=== PATIENT | male | born 1950 | race Caucasian/White ===

== ENCOUNTER → 2016-11-26 | Outpatient (REF) | LOC: ZLAB.WCH 18:42 | DX: Z01.89 Encounter for other specified special examinations (principal) ==

== ENCOUNTER 2019-05-25 10:59 | Emergency (ER) | payer MEDICARE, OTHER ==
[~2019-05-25] VITALS: Ht 177.8 cm; Wt 99.5 kg
[2019-05-25 11:25] VITALS: TEMP 99.9
[2019-05-25] MEDS ORDERED: CYMBALTA 60MG60 MG PO (11:46)
[2019-05-25] MEDS ORDERED: PRINIVIL10 MG PO (11:46)
[2019-05-25] MEDS ORDERED: AMBIEN 10MG10 MG PO (11:47)
[2019-05-25] MEDS ORDERED: NORCO 325 MG-51 TAB PO (15:23)
[2019-05-25 15:33] VITALS: BP 157/94; PULSE 95
== END 2019-05-25 15:33 | disposition home or self-care (01) ==
LOC: COL.ER 10:59
DX: S43.084A Other dislocation of right shoulder joint, initial encounter (principal); W00.0XXA Fall on same level due to ice and snow, initial encounter; Y92.009 Unspecified place in unspecified non-institutional (private) residence as the place of occurrence of the external cause
CPT/HCPCS: J2405; J3010